=== PATIENT | female | born 1970 | race Two or more races ===

== ENCOUNTER 2018-12-15 09:45 | Emergency (ER) | payer OTHER ==
[~2018-12-15] VITALS: Ht 162.6 cm; Wt 84.5 kg
[~2018-12-15 09:45] MED LIST: CIPR500T87 PO; METR500T PO; OXYC-302 PO
[2018-12-15 10:24] LABS: MICROSCOPIC NOT IND
[2018-12-15 10:26] LABS: CULTURE INDICATED? NO
--- NOTE | 2018-12-15 10:49 | NUR ---
Patient ambulates from lobby to room with steady gait.
--- NOTE | 2018-12-15 11:16 | NUR ---
Patient up to restroom. Plan of care discussed, questions answered.
[2018-12-15] MEDS ORDERED: SODIUM CHLORIDE FLUSH 10ML SYR IVF ONE (11:30)
[2018-12-15] MEDS ORDERED: ACETAMINOPHEN 500 MG TABLET PO ONE (11:30)
[2018-12-15 11:39] LABS: BASOPHILS # (AUTO) 0.04 x10^3/uL (0-0.1); BASOPHILS % (AUTO) 1 % (0-1); EOSINOPHILS # (AUTO) 0.19 x10^3/uL (0-0.4); EOSINOPHILS % (AUTO) 3 % (1-7); LYMPHOCYTES # (AUTO) 2.78 x10^3/uL (1-3.4); LYMPHOCYTES % (AUTO) 37 % (22-44); MD NO; MEAN CORPUSCULAR HEMOGLOBIN 23.7 pg (27.0-34.8); MEAN CORPUSCULAR HGB CONC 32.5 g/dL (32.4-35.8); MEAN CORPUSCULAR VOLUME 72.8 fL (80-100); MEAN PLATELET VOLUME 9.1 fL (7.4-10.4); MONOCYTES # (AUTO) 0.63 x10^3/uL (0.2-0.8); MONOCYTES % (AUTO) 8 % (2-9); NEUTROPHILS # (AUTO) 3.94 x10^3/uL (1.8-6.8); NEUTROPHILS % (AUTO) 52 % (42-75); PLATELET COUNT 339 x10^3/uL (130-400); RED BLOOD COUNT 5.33 x10^6/uL (3.82-5.3); RED CELL DISTRIBUTION WIDTH 16.1 % (9.6-15.2)
[2018-12-15 11:48] LABS: ALANINE AMINOTRANSFERASE 42 U/L (12-78); ALBUMIN 3.7 g/dL (3.4-5.0); ANION GAP 4 mmol/L (5-15); CALCIUM 8.5 mg/dL (8.5-10.1); CHLORIDE 110 mmol/L (98-107); CREATININE 0.73 mg/dL (0.55-1.02)
[2018-12-15 11:50] LABS: ALKALINE PHOSPHATASE 95 U/L (45-117); BILIRUBIN,TOTAL 0.3 mg/dL (0.2-1.0); TOTAL PROTEIN 8.2 g/dL (6.4-8.2)
--- NOTE | 2018-12-15 11:58 | NUR ---
report received from CYNTHIA Reyes. pt awaiting CT and dispo at this time.
--- NOTE | 2018-12-15 12:04 | NUR ---
pt reports left lower abd pain level 7/10 at this time. pt updated with POC, declines pain medication or any needs at this time. pt a&o, resps even and unlabored, bp and spo2 monitors in place. call light in reach. awaiting CT and dispo.
--- NOTE | 2018-12-15 12:35 | NUR ---
pt back from CT, pt a&o, resps even and unlabored, nadn. awaiting CT results and dispo.
[2018-12-15] MEDS ORDERED: OMNIPAQUE 350 MG/ML, 100ML BOTTLE ONE (12:46)
--- NOTE | 2018-12-15 13:08 | NUR ---
pt a&O, resps even and unlabored. no n/v/d. pt reports pain level unchanged, requests tylenol at this time.
[2018-12-15] MEDS ORDERED: ACETAMINOPHEN 500 MG TABLET ONE (13:30)
[2018-12-15 14:02] VITALS: BP 123/83
--- NOTE | 2018-12-15 14:04 | NUR ---
PT GIVEN DC INSTRUCTIONS. PT REPORTS ABD PAIN IMPROVED S/P TYLENOL. NO N/V/D AT DC. PT A&O, RESPS EVEN AND UNLABORED, NADN. PT AMB TO DC DESK WITH STEADY GAIT.
== END 2018-12-15 14:04 | disposition home or self-care (01) ==
LOC: ED 12:09
DX: R10.32 Left lower quadrant pain (principal); D25.9 Leiomyoma of uterus, unspecified; R19.7 Diarrhea, unspecified
CPT/HCPCS: 36415; 74177; 80053; 81003; 85025; 99284; Q9967